=== PATIENT | male | born 1950 | race African-American/Black ===

== ENCOUNTER → 2016-10-31 | Outpatient (CLI) | payer BC, OTHER ==
[2016-10-31 14:55] LABS: HEMATOCRIT. 41.3 % (42.0-52.0); HEMOGLOBIN. 14.1 g/dL (14.0-18.0); MEAN CORPUSCULAR HEMOGLOBIN 27.2 pg (28.0-32.0); MEAN CORPUSCULAR HGB CONC 34.2 g/dL (31.0-37.0); MEAN CORPUSCULAR VOLUME 79.6 fL (80.0-94.0); MEAN PLATELET VOLUME 7.4 fl (7.4-10.4); PLATELET 241 x1000/uL (130-400); RED BLOOD CELL COUNT 5.18 mill/uL (4.7-6.1); RED CELL DISTRIBUTION WIDTH 15.1 % (11.6-14.6); WHITE BLOOD COUNT 4.3 x1000/uL (4.5-11.0)
[2016-10-31 15:01] LABS: DIFFERENTIAL COMMENT 1
[2016-10-31 15:09] LABS: ALANINE AMINOTRANSFERASE 21 IU/L (13-61); ANION GAP 12; CALCIUM 8.6 mg/dL (8.5-10.1); CARBON DIOXIDE 30 mEq/L (21-32); CHLORIDE 103 mEq/L (98-107); HDL CHOLESTEROL 32 mg/dL (40-59); INDEX HEMOLYSI 1 (1-3); INDEX ICTERIC 1 (1-4); INDEX LIPEMIC 1 (1-3); LDL CHOLESTEROL 126 mg/dL (5-100); TRIGLYCERIDE 151 mg/dL (0-150); UREA NITROGEN BLOOD 18 mg/dL (7-21); eGFR > 60 mL/min (>60)
[2016-10-31 15:29] LABS: PLATELET ESTIMATE NORMAL
== END | disposition home or self-care (01) ==
LOC: LAB 14:20
PROVIDERS: ATTEND Internal Medicine Geriatric Medicine
DX: I10 Essential (primary) hypertension (principal); E78.2 Mixed hyperlipidemia
CPT/HCPCS: 36415; 80053; 80061; 83036; 85025

== ENCOUNTER → 2016-11-12 | Outpatient (CLI) | payer BC, OTHER | END | disposition home or self-care (01) | LOC: PVL 12:30 | PROVIDERS: ATTEND Specialist | DX: M51.37 Other intervertebral disc degeneration, lumbosacral region (principal); M54.16 Radiculopathy, lumbar region | CPT/HCPCS: 72100; 93923 ==

== ENCOUNTER → 2017-04-01 | Outpatient (CLI) | payer BC, OTHER ==
[2017-04-01 15:32] LABS: T4 FREE 0.96 ng/dL (0.76-1.46)
[2017-04-01 15:48] LABS: VITAMIN B12 SERUM 941 pg/mL (211-911)
[2017-04-01 15:51] LABS: FOLIC ACID (FOLATE) SERUM > 20.00 ng/mL (>5.38)
== END | disposition home or self-care (01) ==
LOC: LAB 14:26
PROVIDERS: ATTEND Psychiatry & Neurology Neurology
DX: M79.609 Pain in unspecified limb (principal); R70.0 Elevated erythrocyte sedimentation rate
CPT/HCPCS: 36415; 82607; 82746; 83036; 84439; 84443; 84481

== ENCOUNTER → 2017-04-23 | Outpatient (CLI) | payer BC, OTHER | END | disposition home or self-care (01) | LOC: MRI 08:22 | PROVIDERS: ATTEND Psychiatry & Neurology Neurology | DX: M51.36 Other intervertebral disc degeneration, lumbar region (principal); M48.061 Spinal stenosis, lumbar region without neurogenic claudication; M51.27 Other intervertebral disc displacement, lumbosacral region; M51.26 Other intervertebral disc displacement, lumbar region; R20.0 Anesthesia of skin | CPT/HCPCS: 72148 ==

== ENCOUNTER → 2017-07-30 | Outpatient (CLI) | payer BC, OTHER ==
[2017-07-30 07:08] LABS: BASOPHILS % 0.3 % (0.0-2.0); EOSINOPHILS % 2.2 % (0.0-5.0); HEMATOCRIT. 42.1 % (42.0-52.0); HEMOGLOBIN. 14.1 g/dL (14.0-18.0); LYMPHOCYTES % 37.9 % (20.0-50.0); MEAN CORPUSCULAR HEMOGLOBIN 27.4 pg (28.0-32.0); MEAN CORPUSCULAR VOLUME 81.6 fL (80.0-94.0); MEAN PLATELET VOLUME 6.8 fl (7.4-10.4); MONOCYTES % 10.8 % (2.0-8.0); NEUTROPHILS % 48.8 % (40.0-76.0); PLATELET 261 x1000/uL (130-400); RED BLOOD CELL COUNT 5.16 mill/uL (4.7-6.1); RED CELL DISTRIBUTION WIDTH 15.3 % (11.6-14.6)
[2017-07-30 08:16] LABS: CARBON DIOXIDE 29 mEq/L (21-32); CHLORIDE 103 mEq/L (98-107); HDL CHOLESTEROL 31 mg/dL (40-59); LDL CHOLESTEROL 111 mg/dL (5-100)
== END | disposition home or self-care (01) ==
LOC: LAB 06:47
PROVIDERS: ATTEND Specialist
DX: I10 Essential (primary) hypertension (principal); R39.15 Urgency of urination
CPT/HCPCS: 36415; 80053; 80061; 84153; 85025

== ENCOUNTER → 2017-08-11 | Day surgery (SDC) | payer BC, OTHER ==
[2017-08-11 06:59] LABS: HEMATOCRIT. 44.2 % (42.0-52.0); HEMOGLOBIN. 14.7 g/dL (14.0-18.0); MEAN CORPUSCULAR HEMOGLOBIN 27.6 pg (28.0-32.0); PLATELET 222 x1000/uL (130-400); RED BLOOD CELL COUNT 5.33 mill/uL (4.7-6.1); RED CELL DISTRIBUTION WIDTH 14.9 % (11.6-14.6)
[2017-08-11 07:30] LABS: CARBON DIOXIDE 30 mEq/L (21-32); CHLORIDE 106 mEq/L (98-107); HDL CHOLESTEROL 34 mg/dL (40-59); LDL CHOLESTEROL 108 mg/dL (5-100); TOTAL IRON BINDING CAPACITY 298 ug/dL (250-450)
[2017-08-11 11:26] LABS: PLATELET ESTIMATE NORMAL
[2017-08-11 11:56] LABS: PROSTRATE SPECIFIC AG TOTAL 1.16 ng/mL (0.0-4.0)
== END | disposition home or self-care (01) ==
LOC: LAB 06:25
PROVIDERS: ATTEND Internal Medicine Geriatric Medicine
DX: Z00.00 Encounter for general adult medical examination without abnormal findings (principal); Z12.5 Encounter for screening for malignant neoplasm of prostate; I10 Essential (primary) hypertension; R73.09 Other abnormal glucose
CPT/HCPCS: 36415; 80053; 80061; 82306; 82607; 83036; 83540; 83550; 84153; 84443; 85025; 86592

== ENCOUNTER → 2017-10-24 | Outpatient (CLI) | payer BC, OTHER | END | disposition home or self-care (01) | LOC: MRI 10-22 07:24 | PROVIDERS: ATTEND Podiatrist Foot & Ankle Surgery | DX: M19.071 Primary osteoarthritis, right ankle and foot (principal); M25.474 Effusion, right foot | CPT/HCPCS: 73721 ==

== ENCOUNTER → 2017-11-12 | Outpatient (CLI) | payer BC, OTHER ==
[2017-11-12 08:58] LABS: CHLORIDE 107 mEq/L (98-107)
[2017-11-12 09:06] LABS: LDL CHOLESTEROL 117 mg/dL (5-100)
[2017-11-12 09:07] LABS: HDL CHOLESTEROL 31 mg/dL (40-59)
== END | disposition home or self-care (01) ==
LOC: LAB 07:45
PROVIDERS: ATTEND Internal Medicine Geriatric Medicine
DX: E78.5 Hyperlipidemia, unspecified (principal); R79.89 Other specified abnormal findings of blood chemistry; I10 Essential (primary) hypertension
CPT/HCPCS: 36415; 80053; 80061; 83036

== ENCOUNTER → 2018-04-23 | Outpatient (CLI) | payer BC, OTHER ==
[2018-04-23 07:31] LABS: INR 1.1; PARTIAL THROMBOPLASTIN TIME 31.6 sec (23.4-31.0); PROTHROMBIN TIME 11.2 sec (9.1-11.1)
[2018-04-23 07:48] LABS: HEMATOCRIT. 42.7 % (42.0-52.0); HEMOGLOBIN. 14.6 g/dL (14.0-18.0); MEAN CORPUSCULAR HEMOGLOBIN 27.8 pg (28.0-32.0); MEAN CORPUSCULAR VOLUME 81.4 fL (80.0-94.0); MEAN PLATELET VOLUME 7.3 fl (7.4-10.4); PLATELET 227 x1000/uL (130-400); RED BLOOD CELL COUNT 5.25 mill/uL (4.7-6.1); RED CELL DISTRIBUTION WIDTH 15.6 % (11.6-14.6)
[2018-04-23 07:51] LABS: CHLORIDE 106 mEq/L (98-107)
[2018-04-23 07:57] LABS: HDL CHOLESTEROL 28 mg/dL (40-59); LDL CHOLESTEROL 120 mg/dL (5-100)
[2018-04-23 11:06] LABS: PLATELET ESTIMATE NORMAL
== END | disposition home or self-care (01) ==
LOC: LAB 04-22 16:40
PROVIDERS: ATTEND Internal Medicine Geriatric Medicine
DX: I10 Essential (primary) hypertension (principal); E78.5 Hyperlipidemia, unspecified; R73.9 Hyperglycemia, unspecified; Z79.01 Long term (current) use of anticoagulants
CPT/HCPCS: 36415; 80061; 83036

== ENCOUNTER → 2018-04-30 | Outpatient (CLI) | payer BC, OTHER ==
[~2018-04-30] MED LIST: IOHEXOL-300 100 ML BOTTLE ONE
== END | disposition home or self-care (01) ==
LOC: CT 07:14
PROVIDERS: ATTEND Internal Medicine Geriatric Medicine
DX: R22.1 Localized swelling, mass and lump, neck (principal); R51 Headache; R05 Cough
CPT/HCPCS: 70470; 70486; 70492; 71270; Q9967

== ENCOUNTER → 2018-05-12 | Outpatient (CLI) | payer BC, OTHER ==
[2018-05-12 20:07] LABS: PROSTRATE SPECIFIC AG TOTAL 1.11 ng/mL (0.0-4.0)
[2018-05-12 20:08] LABS: CARCINO EMBRYONIC ANTIGEN 1.9 ng/ml
== END | disposition home or self-care (01) ==
LOC: LAB 16:18
PROVIDERS: ATTEND Internal Medicine Geriatric Medicine
DX: R59.0 Localized enlarged lymph nodes (principal)
CPT/HCPCS: 36415; 82378; 84153; 86301; G0103

== ENCOUNTER → 2018-05-14 | Outpatient (CLI) | payer BC, OTHER ==
[~2018-05-14] MED LIST changes: +BARIUM SULFATE 450ML ORAL SUSP ONE; +LIDOCAINE HCL 1% 20ML VIAL (Pyxis) INJ ONE; +SODIUM BICARBONATE 4% (2.4MEQ) 5ML VIAL IV ONE
== END | disposition home or self-care (01) ==
LOC: CT 07:06
PROVIDERS: ATTEND Internal Medicine Geriatric Medicine
DX: C79.89 Secondary malignant neoplasm of other specified sites (principal); C80.1 Malignant (primary) neoplasm, unspecified; I10 Essential (primary) hypertension; E78.5 Hyperlipidemia, unspecified; Z79.899 Other long term (current) drug therapy; Z79.01 Long term (current) use of anticoagulants
CPT/HCPCS: 38505; 74178; 76942; 88172; 88173; J3490; Q9967

== ENCOUNTER 2018-05-16 05:53 | Inpatient (IN) | payer BC, MEDICARE, OTHER ==
[~2018-05-16] VITALS: Ht 185.4 cm; Wt 105.2 kg
[2018-05-16 07:43] LABS: CHLORIDE 105 mEq/L (98-107)
[2018-05-16 07:51] LABS: INR 1.1; PARTIAL THROMBOPLASTIN TIME 31.8 sec (23.4-31.0)
[2018-05-16 07:57] LABS: HEMATOCRIT. 44.3 % (42.0-52.0); HEMOGLOBIN. 15.2 g/dL (14.0-18.0); MEAN CORPUSCULAR HEMOGLOBIN 27.9 pg (28.0-32.0); MEAN CORPUSCULAR VOLUME 81.5 fL (80.0-94.0); MEAN PLATELET VOLUME 7.3 fl (7.4-10.4); PLATELET 244 x1000/uL (130-400); RED BLOOD CELL COUNT 5.44 mill/uL (4.7-6.1); RED CELL DISTRIBUTION WIDTH 15.5 % (11.6-14.6)
[2018-05-16] MEDS ORDERED: SODIUM CHL 0.45% + KCL 20MEQ/L 1,000 ML IV SCH (08:00)
[2018-05-16] MEDS ORDERED: CLONIDINE 0.1MG TABLET PO PRN (08:00)
[2018-05-16] MEDS ORDERED: ACETAMINOPHEN 325MG TABLET PO PRN (08:00)
[2018-05-16] MEDS ORDERED: ONDANSETRON HCL 4MG/2ML INJ IV PRN (08:00)
[2018-05-16 08:15] LABS: PLATELET ESTIMATE NORMAL
[2018-05-16 08:48] LABS: CLARITY URINE CLEAR (CLEAR); COLOR URINE YELLOW (YELLOW); KETONES URINE NEGATIVE (NEGATIVE); LEUKOCYTE ESTERASE URINE NEGATIVE (NEGATIVE); NITRITE URINE NEGATIVE (NEGATIVE); OCCULT BLOOD URINE NEGATIVE (NEGATIVE); PROTEIN URINE NEGATIVE (NEGATIVE); SPECIFIC GRAVITY URINE 1.017 (1.005-1.030); UROBILINOGEN URINE 0.2 E.U./dL (0.2-1.0)
[2018-05-16] MEDS ORDERED: DOCUSATE SODIUM 100MG CAPSULE PO SCH (09:00)
[2018-05-16] MEDS ORDERED: IOHEXOL-300 100 ML BOTTLE ONE (09:29)
[2018-05-16] MEDS ORDERED: PIPERACILLIN/TAZ 3.375G PREMIX 50 ML IV SCH (09:51)
[2018-05-16 11:00] VITALS: BP 123/74
[2018-05-16] MEDS: DOCUSATE SODIUM 250MG CAPSULE PO SCH (11:00)
[2018-05-16] MEDS: AMLODIPINE 5MG TABLET PO SCH (11:00)
[2018-05-16] MEDS ORDERED: MORPHINE SULFATE 4 MG/ML CPJ (NOT FOR IM USE) IV PRN (11:15)
[2018-05-16] MEDS ORDERED: IPRATROPIUM/ALBUTEROL 0.5-3(2.5)MG/3ML NEB HHN SCH (12:00)
[2018-05-16] MEDS: SODIUM CHLORIDE 0.45% 1,000 ML IV SCH ×2 (15:15→20:57)
[2018-05-16] MEDS: PIPERACILLIN/TAZ 3.375G PREMIX 50 ML IV SCH ×2 (15:15→21:32)
[2018-05-16 19:59] VITALS: BP 110/60
[2018-05-16] MEDS ORDERED: ZOLPIDEM TARTRATE 5MG TABLET PO PRN (21:00)
[2018-05-16 23:49] VITALS: BP 115/61
[2018-05-17 04:00] VITALS: BP 136/76
[2018-05-17] MEDS: PIPERACILLIN/TAZ 3.375G PREMIX 50 ML IV SCH (05:28)
[2018-05-17] MEDS: SODIUM CHLORIDE 0.45% 1,000 ML IV SCH (05:28)
[2018-05-17 07:01] LABS: BASOPHILS % 0.3 % (0.0-2.0); EOSINOPHILS % 3.2 % (0.0-5.0); HEMATOCRIT. 42.2 % (42.0-52.0); HEMOGLOBIN. 14.6 g/dL (14.0-18.0); LYMPHOCYTES % 38.7 % (20.0-50.0); MEAN CORPUSCULAR HEMOGLOBIN 28.1 pg (28.0-32.0); MEAN CORPUSCULAR VOLUME 81.1 fL (80.0-94.0); MEAN PLATELET VOLUME 7.3 fl (7.4-10.4); MONOCYTES % 7.9 % (2.0-8.0); NEUTROPHILS % 49.9 % (40.0-76.0); PLATELET 238 x1000/uL (130-400); RED CELL DISTRIBUTION WIDTH 15.1 % (11.6-14.6)
[2018-05-17 07:02] LABS: CHLORIDE 104 mEq/L (98-107)
[2018-05-17 08:00] VITALS: BP 139/80
[2018-05-17 08:19] LABS: BG BASE EXCESS -1.4 mmol/L (-2.0-2.0); BG CARBOXYHEMOGLOBIN 1.1 % (0.5-1.5); BG DEOXYHEMOGLOBIN 3.5 % (0.0-5.0); BG FRACTION INSPIRED OXYGEN 21; BG HCO3 ACT 22.9 mmol/L (22.0-26.0); BG METHEMOGLOBIN 0.3 % (0.0-1.5); BG OXYGEN SATURATION 96.5 % (92.0-98.5); BG OXYHEMOGLOBIN 95.1 % (94.0-97.0); BG PCO2 37.4 mmHg (35.0-45.0); BG PH 7.405 (7.350-7.450); BG PO2 85.7 mmHg (75.0-100.0); BG SAMPLE SITE RIGHT RADIAL; BG TOTAL HEMOGLOBIN 14.9 g/dL (12.0-18.0); BG VENT MODE ROOM AIR
[2018-05-17] MEDS: AMLODIPINE 5MG TABLET PO SCH (08:45)
[2018-05-17] MEDS: DOCUSATE SODIUM 250MG CAPSULE PO SCH (08:48)
[2018-05-17 09:34] VITALS: BP 139/80
== END 2018-05-17 11:01 | disposition home or self-care (01) | DRG 147 ==
LOC: ER 05:53 → 7WST 08:21 → CANRESERV 09:35 → ENRESERV 09:35
PROVIDERS: ADMIT Internal Medicine Geriatric Medicine; ATTEND Internal Medicine Geriatric Medicine
DX: C09.9 Malignant neoplasm of tonsil, unspecified (principal); I47.2 Ventricular tachycardia; I10 Essential (primary) hypertension; E78.00 Pure hypercholesterolemia, unspecified; J98.8 Other specified respiratory disorders
CPT/HCPCS: 36415; 36600; 70470; 70486; 70491; 80048; 82375; 82805; 96365; 99285; J2543; J7620; Q9967

== ENCOUNTER → 2018-06-02 | Outpatient (CLI) | payer BC, MEDICARE, OTHER | END | disposition home or self-care (01) | LOC: LAB 08:28 | PROVIDERS: ATTEND Internal Medicine Hematology & Oncology | DX: C09.0 Malignant neoplasm of tonsillar fossa (principal) | CPT/HCPCS: 36415; 82378 ==

== ENCOUNTER 2018-08-11 12:18 | Inpatient (IN) | payer BC, MEDICARE, OTHER ==
[~2018-08-11] VITALS: Ht 189.2 cm; Wt 86.2 kg
[2018-08-11] MEDS ORDERED: MAGNESIUM/ALUMINUM HYDROXIDE/SIMETHICONE 30ML UDC PO PRN (13:30)
[2018-08-11] MEDS ORDERED: HYDROMORPHONE HCL/PF 2MG/ML CPJ IV PRN (13:30)
[2018-08-11] MEDS ORDERED: LORAZEPAM 2MG/ML CPJ IV PRN (13:30)
[2018-08-11] MEDS ORDERED: ACETAMINOPHEN 650MG SUPP PR PRN (13:30)
[2018-08-11] MEDS ORDERED: ONDANSETRON HCL 4MG/2ML INJ IV PRN (13:30)
[2018-08-11] MEDS ORDERED: PANTOPRAZOLE SODIUM 40 MG/VIAL IV ONE (14:00)
[2018-08-11] MEDS ORDERED: SODIUM CHLORIDE 0.9% 1,000 ML IV ONE (14:50)
[2018-08-11 15:31] LABS: BASOPHILS % 0.7 % (0.0-2.0); HEMATOCRIT. 45.7 % (42.0-52.0); HEMOGLOBIN. 15.5 g/dL (14.0-18.0); LYMPHOCYTES % 7.3 % (20.0-50.0); MEAN CORPUSCULAR HEMOGLOBIN 27.9 pg (28.0-32.0); MEAN CORPUSCULAR VOLUME 81.9 fL (80.0-94.0); MEAN PLATELET VOLUME 7.6 fl (7.4-10.4); MONOCYTES % 11.8 % (2.0-8.0); NEUTROPHILS % 78.2 % (40.0-76.0); PLATELET 238 x1000/uL (130-400); RED BLOOD CELL COUNT 5.57 mill/uL (4.7-6.1); RED CELL DISTRIBUTION WIDTH 14.9 % (11.6-14.6)
[2018-08-11 15:37] LABS: CHLORIDE 104 mEq/L (98-107)
[2018-08-11 15:46] LABS: INR 1.2; PARTIAL THROMBOPLASTIN TIME 29.9 sec (23.4-31.0)
[2018-08-11 15:49] LABS: CREATINE KINASE MB FRACTION 1.5 ng/mL (0.5-3.6)
[2018-08-11] MEDS ORDERED: MVI, ADULT NO.1 10 ML, FOLIC ACID 1 MG in SODIUM CHLORIDE 0.9% 1,000 ML IV SCH ×3 (16:00)
[2018-08-11] MEDS ORDERED: MVI, ADULT NO.1 10 ML, FOLIC ACID 1 MG in SODIUM CHLORIDE 0.9% 1,000 ML IV NR ×3 (16:00)
[2018-08-11] MEDS ORDERED: IOHEXOL-300 100 ML BOTTLE ONE (18:33)
[2018-08-11 20:23] LABS: CLARITY URINE CLEAR (CLEAR); COLOR URINE YELLOW (YELLOW); KETONES URINE 2+ (NEGATIVE); LEUKOCYTE ESTERASE URINE NEGATIVE (NEGATIVE); NITRITE URINE NEGATIVE (NEGATIVE); OCCULT BLOOD URINE NEGATIVE (NEGATIVE); PROTEIN URINE NEGATIVE (NEGATIVE); SPECIFIC GRAVITY URINE 1.057 (1.005-1.030); UROBILINOGEN URINE 0.2 E.U./dL (0.2-1.0)
[2018-08-11] MEDS ORDERED: PANTOPRAZOLE SODIUM 40 MG/VIAL IV SCH (21:00)
[2018-08-12] VITALS: BP 116/82
[2018-08-12] MEDS ORDERED: AMLO5TAB88 PO (00:47)
[2018-08-12] MEDS: IPRATROPIUM/ALBUTEROL 0.5-3(2.5)MG/3ML NEB HHN SCH ×5 (00:50→20:03)
[2018-08-12 00:59] VITALS: BP 116/82
[2018-08-12] MEDS: DEXT 5%/0.45% NACL KCL 20MEQ/L 1,000 ML IV SCH ×2 (03:06→15:52)
[2018-08-12 04:00] VITALS: BP 128/80
[2018-08-12 05:46] LABS: BASOPHILS % 0.9 % (0.0-2.0); EOSINOPHILS % 4.2 % (0.0-5.0); HEMATOCRIT. 41.7 % (42.0-52.0); HEMOGLOBIN. 14.1 g/dL (14.0-18.0); LYMPHOCYTES % 10.5 % (20.0-50.0); MEAN CORPUSCULAR HEMOGLOBIN 27.8 pg (28.0-32.0); MEAN CORPUSCULAR VOLUME 82.2 fL (80.0-94.0); MEAN PLATELET VOLUME 7.7 fl (7.4-10.4); NEUTROPHILS % 70.4 % (40.0-76.0); PLATELET 219 x1000/uL (130-400); RED BLOOD CELL COUNT 5.08 mill/uL (4.7-6.1)
[2018-08-12 06:18] LABS: INR 1.1; PARTIAL THROMBOPLASTIN TIME 29.9 sec (23.4-31.0); PROTHROMBIN TIME 11.5 sec (9.1-11.1)
[2018-08-12 06:39] LABS: CHLORIDE 109 mEq/L (98-107)
[2018-08-12 06:51] LABS: LDL CHOLESTEROL 87 mg/dL (5-100)
[2018-08-12 06:53] LABS: HDL CHOLESTEROL 27 mg/dL (40-59)
[2018-08-12 08:00] VITALS: BP 123/79
[2018-08-12] MEDS ORDERED: CEFAZOLIN 1000MG PREMIX 50 ML IV NR (08:00)
[2018-08-12] MEDS ORDERED: NON FORMULARY PATIENT HOME MED XX SCH (08:30)
[2018-08-12] MEDS ORDERED: PANTOPRAZOLE SODIUM 40 MG/VIAL IV SCH (09:00)
[2018-08-12] MEDS ORDERED: SIMETHICONE 40 MG/0.6 ML 30ML ONE (11:39)
[2018-08-12] MEDS ORDERED: MIDAZOLAM HCL 5 MG/5 ML VIAL ONE (11:39)
[2018-08-12] MEDS ORDERED: FENTANYL CITRATE/PF 50MCG/ML 2ML VIAL ONE (11:40)
[2018-08-12] MEDS ORDERED: MIDAZOLAM HCL 5 MG/5 ML VIAL IV ONE (11:46)
[2018-08-12] MEDS ORDERED: FENTANYL CITRATE/PF 50MCG/ML 2ML VIAL IV ONE (11:47)
[2018-08-12] MEDS ORDERED: PANTOT AC/MIN OIL/PET HY-PHL OINT (AQUAPHOR) TOP SCH (12:00)
[2018-08-12] MEDS: AMLODIPINE 5MG TABLET PO SCH (13:30)
[2018-08-12 15:55] VITALS: BP 103/79
[2018-08-12] MEDS ORDERED: SODIUM CHLORIDE 0.9% 10ML VIAL ONE (16:19)
[2018-08-12 20:00] VITALS: BP 131/78
[2018-08-12] MEDS ORDERED: FAMOTIDINE 20MG TABLET PO SCH (21:00)
[2018-08-13 04:00] VITALS: BP 121/73
[2018-08-13] MEDS: IPRATROPIUM/ALBUTEROL 0.5-3(2.5)MG/3ML NEB HHN SCH ×2 (04:00)
[2018-08-13 06:51] LABS: BASOPHILS % 0.7 % (0.0-2.0); EOSINOPHILS % 4.4 % (0.0-5.0); HEMATOCRIT. 37.9 % (42.0-52.0); HEMOGLOBIN. 12.9 g/dL (14.0-18.0); LYMPHOCYTES % 9.6 % (20.0-50.0); MEAN CORPUSCULAR HEMOGLOBIN 27.7 pg (28.0-32.0); MEAN CORPUSCULAR VOLUME 81.6 fL (80.0-94.0); MEAN PLATELET VOLUME 7.8 fl (7.4-10.4); MONOCYTES % 11.8 % (2.0-8.0); NEUTROPHILS % 73.5 % (40.0-76.0); PLATELET 179 x1000/uL (130-400); RED BLOOD CELL COUNT 4.65 mill/uL (4.7-6.1); RED CELL DISTRIBUTION WIDTH 14.7 % (11.6-14.6)
[2018-08-13 07:41] LABS: CHLORIDE 105 mEq/L (98-107)
[2018-08-13 08:00] VITALS: BP 118/75
[2018-08-13] MEDS: AMLODIPINE 5MG TABLET PO SCH (08:47)
[2018-08-13] MEDS: VISCOUS LIDOCAINE 2% 15 ML UDC MM PRN ×2 (08:47→08:49)
[2018-08-13 12:25] VITALS: BP 110/65
[2018-08-13] MEDS ORDERED: ENOXAPARIN 40MG/0.4ML SYR SUBCUT SCH (21:00)
[2018-10-05] MEDS ORDERED: LEVO500T89 PO (08:08)
[2018-10-05] MEDS ORDERED: ESOM40CA PO (08:08)
[2018-10-05] MEDS ORDERED: GLYC1TAB11 PO (08:08)
[2018-10-05] MEDS ORDERED: AMLO5TAB88 PO (08:08)
== END 2018-08-13 13:48 | disposition home health service (06) | DRG 146 ==
LOC: ER 12:18 → 6EST 16:54 → EDBEDREQ 16:59 → EDBEDREQSVC 16:59 → EDBEDREQ 17:00 → ENRESERV 20:46
PROVIDERS: ADMIT Internal Medicine Geriatric Medicine; ATTEND Internal Medicine Geriatric Medicine
PROC: 0DB68ZX Excision of Stomach, Via Natural or Artificial Opening Endoscopic, Diagnostic (ICD-10-PCS; principal; 2018-08-12)
DX: C09.9 Malignant neoplasm of tonsil, unspecified (principal); E43 Unspecified severe protein-calorie malnutrition; R17 Unspecified jaundice; E86.0 Dehydration; E78.5 Hyperlipidemia, unspecified; R79.89 Other specified abnormal findings of blood chemistry; K26.9 Duodenal ulcer, unspecified as acute or chronic, without hemorrhage or perforation; I10 Essential (primary) hypertension; Z96.659 Presence of unspecified artificial knee joint; R00.0 Tachycardia, unspecified; K20.9 Esophagitis, unspecified; K29.60 Other gastritis without bleeding; K25.9 Gastric ulcer, unspecified as acute or chronic, without hemorrhage or perforation; Y84.2 Radiological procedure and radiotherapy as the cause of abnormal reaction of the patient, or of later complication, without mention of misadventure at the time of the procedure; J02.9 Acute pharyngitis, unspecified; E78.00 Pure hypercholesterolemia, unspecified; N40.0 Benign prostatic hyperplasia without lower urinary tract symptoms; Z92.3 Personal history of irradiation; Z88.8 Allergy status to other drugs, medicaments and biological substances; Z68.24 Body mass index [BMI] 24.0-24.9, adult
CPT/HCPCS: 36415; 70470; 70490; 71045; 71250; 80048; 80061; 82378; 82553; 83036; 83880; 84134; 84443; 84484; 86677; 88305; 88312; 88313; 92610; 93005; 93306; 93970; 96365; 96375; 97161; 99285; C9113; J0690; J2250; J3010; J3490; J7030; J7620; Q9967

== ENCOUNTER → 2018-09-22 | Outpatient (CLI) | payer BC ==
[~2018-09-22] MED LIST changes: +AMLO5TAB88 PO; -BARIUM SULFATE 450ML ORAL SUSP ONE; +ESOM40CA PO; +GLYC1TAB11 PO; -IOHEXOL-300 100 ML BOTTLE ONE; +LEVO500T89 PO; -LIDOCAINE HCL 1% 20ML VIAL (Pyxis) INJ ONE; -SODIUM BICARBONATE 4% (2.4MEQ) 5ML VIAL IV ONE
[2018-09-22 12:52] LABS: CHLORIDE 102 mEq/L (98-107)
== END | disposition home or self-care (01) ==
LOC: LAB 12:24
PROVIDERS: ATTEND Internal Medicine Geriatric Medicine
DX: I10 Essential (primary) hypertension (principal)
CPT/HCPCS: 36415; 80048

== ENCOUNTER → 2018-09-23 | Outpatient (CLI) | payer BC ==
[~2018-09-23] MED LIST changes: +IOHEXOL-300 100 ML BOTTLE ONE
== END | disposition home or self-care (01) ==
LOC: CT 08:30
PROVIDERS: ATTEND Otolaryngology Otolaryngology/Facial Plastic Surgery
DX: R22.1 Localized swelling, mass and lump, neck (principal)
CPT/HCPCS: 70492; Q9967

== ENCOUNTER → 2018-09-25 | Outpatient (CLI) | payer BC ==
[~2018-09-25] MED LIST changes: +BARIUM SULFATE 176 GM SUSP.RECON ONE; +EZ-HD SUSPENSION(BARIUM SULFATE 340GM) PO ONE; -IOHEXOL-300 100 ML BOTTLE ONE
[2018-09-25 14:20] LABS: BASOPHILS % 0.6 % (0.0-2.0); HEMATOCRIT. 37.7 % (42.0-52.0); HEMOGLOBIN. 12.7 g/dL (14.0-18.0); MEAN CORPUSCULAR HEMOGLOBIN 27.9 pg (28.0-32.0); MEAN CORPUSCULAR VOLUME 82.8 fL (80.0-94.0); MEAN PLATELET VOLUME 6.9 fl (7.4-10.4); MONOCYTES % 11.6 % (2.0-8.0); NEUTROPHILS % 69.8 % (40.0-76.0); PLATELET 199 x1000/uL (130-400); RED BLOOD CELL COUNT 4.55 mill/uL (4.7-6.1); RED CELL DISTRIBUTION WIDTH 16.3 % (11.6-14.6)
[2018-09-25 14:27] LABS: CHLORIDE 102 mEq/L (98-107)
[2018-09-25 14:40] LABS: INR 1.1; PARTIAL THROMBOPLASTIN TIME 41.5 sec (23.4-31.0); PROTHROMBIN TIME 10.8 sec (9.1-11.1)
== END | disposition home or self-care (01) ==
LOC: CARD 12:12
PROVIDERS: ATTEND Internal Medicine Geriatric Medicine
DX: Z01.812 Encounter for preprocedural laboratory examination (principal); I31.3 Pericardial effusion (noninflammatory); I11.9 Hypertensive heart disease without heart failure; R13.10 Dysphagia, unspecified
CPT/HCPCS: 36415; 71046; 74220; 93306

== ENCOUNTER → 2018-12-21 | Outpatient (CLI) | payer BC, MEDICARE ==
[~2018-12-21] MED LIST changes: -BARIUM SULFATE 176 GM SUSP.RECON ONE; -ESOM40CA PO; -EZ-HD SUSPENSION(BARIUM SULFATE 340GM) PO ONE; -GLYC1TAB11 PO; -LEVO500T89 PO
[2018-12-21 12:30] LABS: HEMATOCRIT. 39.3 % (42.0-52.0); HEMOGLOBIN. 13.1 g/dL (14.0-18.0); MEAN CORPUSCULAR HEMOGLOBIN 26.9 pg (28.0-32.0); MEAN CORPUSCULAR VOLUME 80.7 fL (80.0-94.0); MEAN PLATELET VOLUME 7.1 fl (7.4-10.4); PLATELET 216 x1000/uL (130-400); RED BLOOD CELL COUNT 4.88 mill/uL (4.7-6.1); RED CELL DISTRIBUTION WIDTH 17.3 % (11.6-14.6)
[2018-12-21 12:36] LABS: CHLORIDE 103 mEq/L (98-107)
[2018-12-21 13:25] LABS: PLATELET ESTIMATE NORMAL
== END | disposition home or self-care (01) ==
LOC: LAB 12:08
PROVIDERS: ATTEND Internal Medicine Hematology & Oncology
DX: C09.0 Malignant neoplasm of tonsillar fossa (principal)
CPT/HCPCS: 36415; 82378

== ENCOUNTER → 2019-02-17 | Outpatient (CLI) | payer BC | END | disposition home or self-care (01) | LOC: MRI 07:08 | PROVIDERS: ATTEND Internal Medicine Geriatric Medicine | DX: M75.122 Complete rotator cuff tear or rupture of left shoulder, not specified as traumatic (principal); M47.22 Other spondylosis with radiculopathy, cervical region; M19.012 Primary osteoarthritis, left shoulder; M50.11 Cervical disc disorder with radiculopathy, high cervical region; M48.02 Spinal stenosis, cervical region | CPT/HCPCS: 72141; 73221 ==

== ENCOUNTER → 2019-03-01 | Outpatient (CLI) | payer BC | END | disposition home or self-care (01) | LOC: RAD 07:25 | PROVIDERS: ATTEND Internal Medicine Geriatric Medicine | DX: M25.512 Pain in left shoulder (principal) | CPT/HCPCS: 73030 ==

== ENCOUNTER → 2019-03-17 | Outpatient (CLI) | payer BC ==
[2019-03-17 08:28] LABS: BASOPHILS % 0.6 % (0.0-2.0); HEMATOCRIT. 41.5 % (42.0-52.0); HEMOGLOBIN. 14.4 g/dL (14.0-18.0); LYMPHOCYTES % 32.7 % (20.0-50.0); MEAN CORPUSCULAR HEMOGLOBIN 28.3 pg (28.0-32.0); MEAN CORPUSCULAR VOLUME 81.8 fL (80.0-94.0); MEAN PLATELET VOLUME 6.9 fl (7.4-10.4); MONOCYTES % 10.6 % (2.0-8.0); NEUTROPHILS % 50.1 % (40.0-76.0); PLATELET 190 x1000/uL (130-400); RED BLOOD CELL COUNT 5.08 mill/uL (4.7-6.1); RED CELL DISTRIBUTION WIDTH 17.4 % (11.6-14.6)
[2019-03-17 09:55] LABS: CHLORIDE 104 mEq/L (98-107)
[2019-03-17 10:07] LABS: T4 FREE 0.88 ng/dL (0.76-1.46)
== END | disposition home or self-care (01) ==
LOC: LAB 07:54
PROVIDERS: ATTEND Internal Medicine Hematology & Oncology
DX: C09.0 Malignant neoplasm of tonsillar fossa (principal)
CPT/HCPCS: 36415; 82378; 84439; 84443

== ENCOUNTER → 2019-06-15 | Outpatient (CLI) | payer BC ==
[2019-06-15 17:11] LABS: HEMATOCRIT. 40.9 % (42.0-52.0); HEMOGLOBIN. 13.8 g/dL (14.0-18.0); MEAN CORPUSCULAR VOLUME 85.8 fL (80.0-94.0); MEAN PLATELET VOLUME 7.1 fl (7.4-10.4); PLATELET 204 x1000/uL (130-400); RED BLOOD CELL COUNT 4.77 mill/uL (4.7-6.1); RED CELL DISTRIBUTION WIDTH 15.4 % (11.6-14.6)
[2019-06-15 17:12] LABS: CHLORIDE 104 mEq/L (98-107)
[2019-06-15 17:38] LABS: PLATELET ESTIMATE NORMAL
== END | disposition home or self-care (01) ==
LOC: LAB 16:29
PROVIDERS: ATTEND Internal Medicine Hematology & Oncology
DX: C09.0 Malignant neoplasm of tonsillar fossa (principal)
CPT/HCPCS: 36415; 82378

== ENCOUNTER → 2019-07-22 | Outpatient (CLI) | payer BC ==
[2019-07-22 14:23] LABS: HEMATOCRIT. 40.1 % (42.0-52.0); HEMOGLOBIN. 13.9 g/dL (14.0-18.0); MEAN CORPUSCULAR HEMOGLOBIN 29.3 pg (28.0-32.0); MEAN CORPUSCULAR VOLUME 84.6 fL (80.0-94.0); MEAN PLATELET VOLUME 6.7 fl (7.4-10.4); PLATELET 181 x1000/uL (130-400); RED BLOOD CELL COUNT 4.74 mill/uL (4.7-6.1); RED CELL DISTRIBUTION WIDTH 15.1 % (11.6-14.6)
[2019-07-22 14:29] LABS: CHLORIDE 105 mEq/L (98-107)
[2019-07-22 14:36] LABS: LDL CHOLESTEROL 111 mg/dL (5-100)
[2019-07-22 14:37] LABS: HDL CHOLESTEROL 46 mg/dL (40-59)
[2019-07-22 14:38] LABS: TOTAL IRON BINDING CAPACITY 289 ug/dL (250-450)
[2019-07-22 14:41] LABS: PLATELET ESTIMATE NORMAL
[2019-07-22 15:16] LABS: CARCINO EMBRYONIC ANTIGEN 2.4 ng/ml; PROSTRATE SPECIFIC AG TOTAL 1.13 ng/mL (0.0-4.0)
== END | disposition home or self-care (01) ==
LOC: LAB 13:51
PROVIDERS: ATTEND Internal Medicine Geriatric Medicine
DX: Z00.00 Encounter for general adult medical examination without abnormal findings (principal); R64 Cachexia; E78.5 Hyperlipidemia, unspecified; I10 Essential (primary) hypertension
CPT/HCPCS: 36415; 80053; 80061; 82306; 82378; 82607; 83036; 83540; 83550; 84153; 84443; 85025; 86592; G0103

== ENCOUNTER → 2020-01-18 | Outpatient (CLI) | payer MEDICARE ==
[~2020-01-18] MED LIST changes: +DOCU250C69 PO; +PANT40TA4 MT
[2020-01-18 10:17] LABS: HEMATOCRIT. 41.8 % (42.0-52.0); HEMOGLOBIN. 14.2 g/dL (14.0-18.0); MEAN CORPUSCULAR HEMOGLOBIN 29.1 pg (28.0-32.0); MEAN CORPUSCULAR VOLUME 85.5 fL (80.0-94.0); MEAN PLATELET VOLUME 6.6 fl (7.4-10.4); PLATELET 153 x1000/uL (130-400); RED BLOOD CELL COUNT 4.89 mill/uL (4.7-6.1)
[2020-01-18 10:24] LABS: CHLORIDE 103 mEq/L (98-107)
[2020-01-18 10:35] LABS: T4 FREE 0.94 ng/dL (0.76-1.46)
[2020-01-18 20:33] LABS: ATYPICAL LYMPHOCYTES 2; PLATELET ESTIMATE NORMAL
== END | disposition home or self-care (01) ==
LOC: LAB 09:45
PROVIDERS: ATTEND Internal Medicine Hematology & Oncology
DX: C09.0 Malignant neoplasm of tonsillar fossa (principal); Z79.899 Other long term (current) drug therapy
CPT/HCPCS: 36415; 80053; 82378; 84439; 84443; 85025

== ENCOUNTER 2020-03-15 07:07 | Inpatient (IN) | payer MEDICARE ==
[~2020-03-15] VITALS: Ht 190.5 cm; Wt 80.7 kg
[~2020-03-15 07:07] MED LIST changes: -DOCU250C69 PO; -PANT40TA4 MT
[2020-03-15] MEDS ORDERED: MORPHINE SULFATE 4 MG/ML CPJ (NOT FOR IM USE) IV STA (07:25)
[2020-03-15] MEDS ORDERED: ONDANSETRON HCL 4MG/2ML INJ IV STA (07:25)
[2020-03-15 08:13] LABS: BASOPHILS % 0.1 % (0.0-2.0); HEMATOCRIT. 52.8 % (42.0-52.0); HEMOGLOBIN. 18.1 g/dL (14.0-18.0); LYMPHOCYTES % 21.8 % (20.0-50.0); MEAN CORPUSCULAR VOLUME 84.4 fL (80.0-94.0); MEAN PLATELET VOLUME 7.4 fl (7.4-10.4); MONOCYTES % 7.1 % (2.0-8.0); PLATELET 278 x1000/uL (130-400); RED BLOOD CELL COUNT 6.25 mill/uL (4.7-6.1); RED CELL DISTRIBUTION WIDTH 15.2 % (11.6-14.6)
[2020-03-15 08:16] LABS: CHLORIDE 93 mEq/L (98-107)
[2020-03-15 08:20] LABS: ETHANOL BLOOD < 10 mg/dL
[2020-03-15] MEDS ORDERED: IOHEXOL-300 100 ML BOTTLE ONE (09:36)
[2020-03-15] MEDS ORDERED: SODIUM CHLORIDE 0.9% 1,000 ML IV ONE (10:45)
[2020-03-15] MEDS ORDERED: LIDOCAINE HCL 4% CREAM 76GM TUBE TP STA (11:47)
[2020-03-15 15:40] VITALS: BP 141/85
[2020-03-15 16:28] VITALS: BP 129/85
[2020-03-15] MEDS ORDERED: ENALAPRIL 2.5MG/2ML VIAL 2ML IV PRN (18:30)
[2020-03-15] MEDS ORDERED: ACETAMINOPHEN 325MG SUPP PR PRN (18:30)
[2020-03-15] MEDS ORDERED: ENALAPRIL 1.25 MG in DEXTROSE 5% WATER 50 ML IV PRN (18:45)
[2020-03-15 19:08] LABS: CLARITY URINE CLOUDY (CLEAR); COLOR URINE YELLOW (YELLOW); KETONES URINE 1+ (NEGATIVE); LEUKOCYTE ESTERASE URINE NEGATIVE (NEGATIVE); NITRITE URINE NEGATIVE (NEGATIVE); OCCULT BLOOD URINE NEGATIVE (NEGATIVE); PROTEIN URINE 1+ (NEGATIVE); SPECIFIC GRAVITY URINE 1.056 (1.005-1.030); UROBILINOGEN URINE 0.2 E.U./dL (0.2-1.0)
[2020-03-15 19:23] LABS: *BENZODIAZEPINES SCREEN URINE NEGATIVE (NEGATIVE); *COCAINE SCREEN URINE NEGATIVE (NEGATIVE)
[2020-03-15 19:24] LABS: *AMPHETAMINES SCREEN URINE NEGATIVE (NEGATIVE); CANNABINOID URINE SCREEN NEGATIVE (NEGATIVE); METHADONE URINE SCREEN NEGATIVE (NEGATIVE); OPIATES URINE SCREEN PRESUMTIVE POSITIVE (NEGATIVE); PHENCYCLIDINE URINE SCREEN NEGATIVE (NEGATIVE)
[2020-03-15 19:26] LABS: *BARBITURATES SCREEN URINE NEGATIVE (NEGATIVE)
[2020-03-15 20:00] VITALS: BP 148/83
[2020-03-15] MEDS: DEXT 5%/0.45% NACL KCL 20MEQ/L 1,000 ML IV SCH (21:11)
[2020-03-15] MEDS: ENOXAPARIN 40MG/0.4ML SYR SUBCUT SCH (21:26)
[2020-03-16] VITALS: BP 139/85
[2020-03-16 04:00] VITALS: BP 141/83
[2020-03-16 06:27] LABS: BASOPHILS % 0.1 % (0.0-2.0); EOSINOPHILS % 0.1 % (0.0-5.0); HEMATOCRIT. 48.1 % (42.0-52.0); HEMOGLOBIN. 15.9 g/dL (14.0-18.0); LYMPHOCYTES % 12.3 % (20.0-50.0); MEAN CORPUSCULAR HEMOGLOBIN 28.4 pg (28.0-32.0); MEAN CORPUSCULAR VOLUME 86.1 fL (80.0-94.0); MEAN PLATELET VOLUME 7.7 fl (7.4-10.4); MONOCYTES % 6.8 % (2.0-8.0); NEUTROPHILS % 80.7 % (40.0-76.0); PLATELET 216 x1000/uL (130-400); RED BLOOD CELL COUNT 5.58 mill/uL (4.7-6.1); RED CELL DISTRIBUTION WIDTH 15.3 % (11.6-14.6)
[2020-03-16 06:35] LABS: CHLORIDE 100 mEq/L (98-107)
[2020-03-16] MEDS: DEXT 5%/0.45% NACL KCL 20MEQ/L 1,000 ML IV SCH ×2 (07:19→21:07)
[2020-03-16 08:00] VITALS: BP 131/81
[2020-03-16] MEDS ORDERED: IPRATROPIUM/ALBUTEROL 0.5-3(2.5)MG/3ML NEB HHN PRN (08:45)
[2020-03-16] MEDS: ENOXAPARIN 40MG/0.4ML SYR SUBCUT SCH (10:41)
[2020-03-16] MEDS: PANTOPRAZOLE SODIUM 40 MG/VIAL IV SCH (10:41)
[2020-03-16] MEDS ORDERED: BUPIVACAINE HCL 0.5% (5MG/ML) 50ML ONE (10:59)
[2020-03-16] MEDS ORDERED: SKIN ADHESIVE 0.7 GM EA TOP ONE (10:59)
[2020-03-16 12:00] VITALS: BP 137/86
[2020-03-16] MEDS: PIPERACILLIN/TAZOBACTAM 3.375 G in DEXT 5% WATER 100 ML IV SCH ×2 (12:39→17:14)
[2020-03-16] MEDS ORDERED: DIATR MEGLU/DIATRIZOATE SOLN 120ML ONE (12:54)
[2020-03-16 16:00] VITALS: BP 131/89
[2020-03-16] MEDS: ONDANSETRON HCL 4MG/2ML INJ IV PRN (17:18)
[2020-03-16 20:00] VITALS: BP_SYST 112; BP_SYST 132; BP_DIAS 72; BP_DIAS 89
[2020-03-16] MEDS: MORPHINE SULFATE 2 MG/ML CPJ (NOT FOR IM USE) IV PRN (20:39)
[2020-03-17] VITALS: BP 118/88
[2020-03-17] MEDS: PIPERACILLIN/TAZOBACTAM 3.375 G in DEXT 5% WATER 100 ML IV SCH ×3 (00:21→13:03)
[2020-03-17 04:00] VITALS: BP 111/83
[2020-03-17] MEDS: MORPHINE SULFATE 2 MG/ML CPJ (NOT FOR IM USE) IV PRN (05:12)
[2020-03-17] MEDS: DEXT 5%/0.45% NACL KCL 20MEQ/L 1,000 ML IV SCH ×4 (05:12→23:08)
[2020-03-17 06:40] LABS: BASOPHILS % 0.1 % (0.0-2.0); EOSINOPHILS % 0.4 % (0.0-5.0); HEMATOCRIT. 51.7 % (42.0-52.0); HEMOGLOBIN. 17.7 g/dL (14.0-18.0); LYMPHOCYTES % 13.2 % (20.0-50.0); MEAN CORPUSCULAR VOLUME 84.6 fL (80.0-94.0); MEAN PLATELET VOLUME 7.5 fl (7.4-10.4); MONOCYTES % 9.3 % (2.0-8.0); PLATELET 240 x1000/uL (130-400); RED BLOOD CELL COUNT 6.11 mill/uL (4.7-6.1); RED CELL DISTRIBUTION WIDTH 15.2 % (11.6-14.6)
[2020-03-17 06:48] LABS: PHOSPHORUS 3.5 mg/dL (2.5-4.9)
[2020-03-17] MEDS: ENOXAPARIN 40MG/0.4ML SYR SUBCUT SCH (08:47)
[2020-03-17] MEDS: PANTOPRAZOLE SODIUM 40 MG/VIAL IV SCH (08:47)
[2020-03-17 12:00] VITALS: BP 128/81
[2020-03-17] MEDS: AMLODIPINE 2.5MG TABLET PO SCH (13:08)
[2020-03-17] MEDS ORDERED: BACITRACIN 50,000 UNITS/VIAL ONE (15:06)
[2020-03-17] MEDS ORDERED: LIDOCAINE HCL 1% 20ML VIAL (Pyxis) INJ ONE (15:06)
[2020-03-17] MEDS ORDERED: BUPIVACAINE HCL/PF 0.5% (5MG/ML) 10ML ONE (15:06)
[2020-03-17 16:00] VITALS: BP 132/87
[2020-03-17 16:17] LABS: CREATINE KINASE 103 IU/L (39-308)
[2020-03-17] MEDS ORDERED: PIPERACILLIN/TAZOBACTAM 2.25 G in DEXTROSE 5% WATER 50 ML IV SCH (18:00)
[2020-03-17] MEDS: HYDROMORPHONE HCL/PF 2MG/ML CPJ IV PRN (23:08)
[2020-03-18] VITALS: BP 132/69
[2020-03-18 00:25] LABS: BASOPHILS % 0.1 % (0.0-2.0); EOSINOPHILS % 0.5 % (0.0-5.0); HEMATOCRIT. 44.2 % (42.0-52.0); HEMOGLOBIN. 14.6 g/dL (14.0-18.0); LYMPHOCYTES % 10.7 % (20.0-50.0); MEAN CORPUSCULAR HEMOGLOBIN 28.4 pg (28.0-32.0); MEAN CORPUSCULAR VOLUME 86.3 fL (80.0-94.0); MEAN PLATELET VOLUME 7.8 fl (7.4-10.4); MONOCYTES % 7.6 % (2.0-8.0); NEUTROPHILS % 81.1 % (40.0-76.0); PLATELET 187 x1000/uL (130-400); RED BLOOD CELL COUNT 5.12 mill/uL (4.7-6.1); RED CELL DISTRIBUTION WIDTH 15.1 % (11.6-14.6)
[2020-03-18 04:00] VITALS: BP 146/80
[2020-03-18] MEDS: HYDROMORPHONE HCL/PF 2MG/ML CPJ IV PRN (04:29)
[2020-03-18] MEDS: DEXT 5%/0.45% NACL KCL 20MEQ/L 1,000 ML IV SCH ×4 (05:08→18:43)
[2020-03-18] MEDS: METOCLOPRAMIDE HCL 10MG/2ML VIAL IV SCH ×5 (05:12→23:52)
[2020-03-18 06:51] LABS: BASOPHILS % 0.2 % (0.0-2.0); EOSINOPHILS % 0.6 % (0.0-5.0); HEMATOCRIT. 46.4 % (42.0-52.0); HEMOGLOBIN. 15.5 g/dL (14.0-18.0); LYMPHOCYTES % 11.3 % (20.0-50.0); MEAN CORPUSCULAR HEMOGLOBIN 28.8 pg (28.0-32.0); MEAN CORPUSCULAR VOLUME 86.1 fL (80.0-94.0); MEAN PLATELET VOLUME 7.8 fl (7.4-10.4); MONOCYTES % 7.7 % (2.0-8.0); NEUTROPHILS % 80.2 % (40.0-76.0); PLATELET 173 x1000/uL (130-400); RED BLOOD CELL COUNT 5.39 mill/uL (4.7-6.1); RED CELL DISTRIBUTION WIDTH 14.9 % (11.6-14.6)
[2020-03-18 07:11] LABS: PHOSPHORUS 3.9 mg/dL (2.5-4.9)
[2020-03-18] MEDS: AMLODIPINE 2.5MG TABLET PO SCH ×2 (09:00→09:59)
[2020-03-18] MEDS: PANTOPRAZOLE SODIUM 40 MG/VIAL IV SCH (09:57)
[2020-03-18] MEDS: ENOXAPARIN 30MG/0.3ML SYR SUBCUT SCH (09:58)
[2020-03-18] MEDS: BISACODYL 10MG SUPP PR SCH (09:59)
[2020-03-18] MEDS ORDERED: TAMSULOSIN HCL 0.4MG SR CAPSULE PO SCH (10:15)
[2020-03-18] MEDS: MORPHINE SULFATE 2 MG/ML CPJ (NOT FOR IM USE) IV PRN ×2 (11:47→23:55)
[2020-03-18 16:00] VITALS: BP 136/80
[2020-03-18 20:00] VITALS: BP 132/78
[2020-03-19] VITALS: BP 145/77
[2020-03-19] MEDS: DEXT 5%/0.45% NACL KCL 20MEQ/L 1,000 ML IV SCH ×3 (00:03→18:24)
[2020-03-19 04:00] VITALS: BP 150/83
[2020-03-19] MEDS: METOCLOPRAMIDE HCL 10MG/2ML VIAL IV SCH ×4 (05:15→23:49)
[2020-03-19 05:58] LABS: BASOPHILS % 0.3 % (0.0-2.0); EOSINOPHILS % 4.5 % (0.0-5.0); HEMATOCRIT. 43.5 % (42.0-52.0); HEMOGLOBIN. 14.9 g/dL (14.0-18.0); LYMPHOCYTES % 14.9 % (20.0-50.0); MEAN CORPUSCULAR HEMOGLOBIN 29.2 pg (28.0-32.0); MEAN CORPUSCULAR VOLUME 85.4 fL (80.0-94.0); MEAN PLATELET VOLUME 7.7 fl (7.4-10.4); MONOCYTES % 10.6 % (2.0-8.0); NEUTROPHILS % 69.7 % (40.0-76.0); PLATELET 162 x1000/uL (130-400); RED BLOOD CELL COUNT 5.09 mill/uL (4.7-6.1); RED CELL DISTRIBUTION WIDTH 15.1 % (11.6-14.6)
[2020-03-19 08:00] VITALS: BP 136/82
[2020-03-19] MEDS: DOCUSATE SODIUM 250MG CAPSULE PO SCH (09:07)
[2020-03-19] MEDS: TAMSULOSIN HCL 0.4MG SR CAPSULE PO SCH (09:08)
[2020-03-19] MEDS: PANTOPRAZOLE SODIUM 40 MG/VIAL IV SCH (09:08)
[2020-03-19] MEDS: BISACODYL 10MG SUPP PR SCH (09:08)
[2020-03-19] MEDS: ENOXAPARIN 30MG/0.3ML SYR SUBCUT SCH (09:09)
[2020-03-19 12:00] VITALS: BP 155/88
[2020-03-19 16:00] VITALS: BP 157/92
[2020-03-19] MEDS ORDERED: AMLODIPINE 2.5MG TABLET PO NR (17:00)
[2020-03-19 20:00] VITALS: BP 166/90
[2020-03-20] VITALS: BP 130/72
[2020-03-20] MEDS: DEXT 5%/0.45% NACL KCL 20MEQ/L 1,000 ML IV SCH ×3 (03:21→22:05)
[2020-03-20 04:00] VITALS: BP 138/78
[2020-03-20] MEDS: METOCLOPRAMIDE HCL 10MG/2ML VIAL IV SCH ×4 (06:33→22:05)
[2020-03-20 06:49] LABS: BASOPHILS % 0.2 % (0.0-2.0); EOSINOPHILS % 6.5 % (0.0-5.0); HEMATOCRIT. 36.2 % (42.0-52.0); HEMOGLOBIN. 12.4 g/dL (14.0-18.0); LYMPHOCYTES % 21.2 % (20.0-50.0); MEAN CORPUSCULAR HEMOGLOBIN 29.4 pg (28.0-32.0); MEAN CORPUSCULAR VOLUME 85.7 fL (80.0-94.0); MEAN PLATELET VOLUME 7.3 fl (7.4-10.4); MONOCYTES % 12.2 % (2.0-8.0); NEUTROPHILS % 59.9 % (40.0-76.0); PLATELET 173 x1000/uL (130-400); RED BLOOD CELL COUNT 4.22 mill/uL (4.7-6.1); RED CELL DISTRIBUTION WIDTH 14.8 % (11.6-14.6)
[2020-03-20 08:00] VITALS: BP 143/84
[2020-03-20] MEDS: BISACODYL 10MG SUPP PR SCH (08:49)
[2020-03-20] MEDS: PANTOPRAZOLE SODIUM 40 MG/VIAL IV SCH (08:49)
[2020-03-20] MEDS: TAMSULOSIN HCL 0.4MG SR CAPSULE PO SCH (08:50)
[2020-03-20] MEDS: DOCUSATE SODIUM 250MG CAPSULE PO SCH (08:50)
[2020-03-20] MEDS: ENOXAPARIN 30MG/0.3ML SYR SUBCUT SCH (08:51)
[2020-03-20] MEDS: AMLODIPINE 5MG TABLET PO SCH (08:51)
[2020-03-20 12:00] VITALS: BP 134/80
[2020-03-20 16:00] VITALS: BP 147/85
[2020-03-20] MEDS: MORPHINE SULFATE 2 MG/ML CPJ (NOT FOR IM USE) IV PRN (16:36)
[2020-03-20 20:00] VITALS: BP 138/72
[2020-03-21] VITALS (7 sets, daily range): BP systolic 115–145; BP diastolic 65–89
[2020-03-21 06:32] LABS: BASOPHILS % 0.3 % (0.0-2.0); HEMOGLOBIN. 12.1 g/dL (14.0-18.0); LYMPHOCYTES % 20.8 % (20.0-50.0); MEAN CORPUSCULAR HEMOGLOBIN 28.8 pg (28.0-32.0); MEAN CORPUSCULAR VOLUME 85.8 fL (80.0-94.0); MEAN PLATELET VOLUME 7.4 fl (7.4-10.4); MONOCYTES % 11.4 % (2.0-8.0); NEUTROPHILS % 63.5 % (40.0-76.0); PLATELET 180 x1000/uL (130-400); RED BLOOD CELL COUNT 4.19 mill/uL (4.7-6.1); RED CELL DISTRIBUTION WIDTH 14.5 % (11.6-14.6)
[2020-03-21 06:33] LABS: CHLORIDE 110 mEq/L (98-107)
[2020-03-21] MEDS: METOCLOPRAMIDE HCL 10MG/2ML VIAL IV SCH ×3 (06:40→17:22)
[2020-03-21] MEDS: DEXT 5%/0.45% NACL KCL 20MEQ/L 1,000 ML IV SCH ×2 (06:40→16:41)
[2020-03-21] MEDS: PANTOPRAZOLE SODIUM 40 MG/VIAL IV SCH (08:21)
[2020-03-21] MEDS: AMLODIPINE 5MG TABLET PO SCH (08:22)
[2020-03-21] MEDS: TAMSULOSIN HCL 0.4MG SR CAPSULE PO SCH (08:22)
[2020-03-21] MEDS: DOCUSATE SODIUM 250MG CAPSULE PO SCH (08:22)
[2020-03-21] MEDS: BISACODYL 10MG SUPP PR SCH (08:23)
[2020-03-21] MEDS: ENOXAPARIN 40MG/0.4ML SYR SUBCUT SCH (08:23)
[2020-03-21] MEDS ORDERED: PANT40TA4 MT (08:40)
[2020-03-21] MEDS ORDERED: DOCU250C69 PO (08:40)
[2020-03-21] MEDS: LACTOBACILLUS GG CAPSULE PO SCH (09:31)
[2020-03-21] MEDS: ONDANSETRON HCL 4MG/2ML INJ IV PRN (15:57)
[2020-03-21 17:21] LABS: BASOPHILS % 0.3 % (0.0-2.0); EOSINOPHILS % 2.9 % (0.0-5.0); HEMATOCRIT. 40.3 % (42.0-52.0); HEMOGLOBIN. 13.4 g/dL (14.0-18.0); MEAN CORPUSCULAR HEMOGLOBIN 28.6 pg (28.0-32.0); MEAN CORPUSCULAR VOLUME 85.9 fL (80.0-94.0); MEAN PLATELET VOLUME 7.3 fl (7.4-10.4); MONOCYTES % 9.7 % (2.0-8.0); NEUTROPHILS % 72.1 % (40.0-76.0); PLATELET 207 x1000/uL (130-400); RED CELL DISTRIBUTION WIDTH 14.7 % (11.6-14.6)
[2020-03-21 17:28] LABS: CHLORIDE 108 mEq/L (98-107)
[2020-03-22] VITALS: BP_SYST 116; BP_SYST 135; BP_DIAS 65; BP_DIAS 80
[2020-03-22] MEDS: METOCLOPRAMIDE HCL 10MG/2ML VIAL IV SCH ×3 (00:16→12:39)
[2020-03-22 04:00] VITALS: BP 130/81
[2020-03-22] MEDS: DEXT 5%/0.45% NACL KCL 20MEQ/L 1,000 ML IV SCH (06:50)
[2020-03-22 07:19] LABS: BASOPHILS % 0.4 % (0.0-2.0); EOSINOPHILS % 4.2 % (0.0-5.0); HEMATOCRIT. 38.7 % (42.0-52.0); HEMOGLOBIN. 13.3 g/dL (14.0-18.0); MEAN CORPUSCULAR VOLUME 84.5 fL (80.0-94.0); MEAN PLATELET VOLUME 7.4 fl (7.4-10.4); MONOCYTES % 12.3 % (2.0-8.0); NEUTROPHILS % 57.1 % (40.0-76.0); PLATELET 207 x1000/uL (130-400); RED BLOOD CELL COUNT 4.58 mill/uL (4.7-6.1); RED CELL DISTRIBUTION WIDTH 14.9 % (11.6-14.6)
[2020-03-22 07:31] LABS: CHLORIDE 109 mEq/L (98-107)
[2020-03-22 08:00] VITALS: BP 138/73
[2020-03-22] MEDS: LACTOBACILLUS GG CAPSULE PO SCH (08:36)
[2020-03-22] MEDS: ENOXAPARIN 40MG/0.4ML SYR SUBCUT SCH (08:36)
[2020-03-22] MEDS: AMLODIPINE 5MG TABLET PO SCH (08:36)
[2020-03-22] MEDS: TAMSULOSIN HCL 0.4MG SR CAPSULE PO SCH (08:37)
[2020-03-22] MEDS: DOCUSATE SODIUM 250MG CAPSULE PO SCH (08:37)
[2020-03-22] MEDS: PANTOPRAZOLE SODIUM 40 MG/VIAL IV SCH (08:37)
[2020-03-22] MEDS: BISACODYL 10MG SUPP PR SCH (08:38)
[2020-03-22 12:00] VITALS: BP 145/85
[2020-03-22 14:50] VITALS: BP 145/85
== END 2020-03-22 15:42 | disposition home or self-care (01) | DRG 336 ==
LOC: ER 07:07 → EDBEDREQ 07:42 → EDBEDREQSVC 11:10 → EDBEDREQTM 11:10 → 6EST 11:12 → EDBEDREQ 11:14 → EDBEDREQTM 11:14 → ENRESERV 14:59 → 6EST 03-19 17:51
PROVIDERS: ADMIT Internal Medicine Geriatric Medicine; ATTEND Internal Medicine Geriatric Medicine
PROC: 0DN80ZZ Release Small Intestine, Open Approach (ICD-10-PCS; principal; 2020-03-16)
DX: K56.609 Unspecified intestinal obstruction, unspecified as to partial versus complete obstruction (principal); K91.89 Other postprocedural complications and disorders of digestive system; N17.9 Acute kidney failure, unspecified; K80.20 Calculus of gallbladder without cholecystitis without obstruction; E78.5 Hyperlipidemia, unspecified; I10 Essential (primary) hypertension; D72.829 Elevated white blood cell count, unspecified; D75.1 Secondary polycythemia; C09.9 Malignant neoplasm of tonsil, unspecified; K40.20 Bilateral inguinal hernia, without obstruction or gangrene, not specified as recurrent; K80.50 Calculus of bile duct without cholangitis or cholecystitis without obstruction; E86.9 Volume depletion, unspecified; K56.7 Ileus, unspecified; K21.9 Gastro-esophageal reflux disease without esophagitis; Z85.89 Personal history of malignant neoplasm of other organs and systems; Z85.818 Personal history of malignant neoplasm of other sites of lip, oral cavity, and pharynx; Z79.899 Other long term (current) drug therapy; Z82.3 Family history of stroke; Z86.19 Personal history of other infectious and parasitic diseases; Z87.11 Personal history of peptic ulcer disease; Z92.3 Personal history of irradiation; E80.6 Other disorders of bilirubin metabolism
CPT/HCPCS: 36415; 71045; 74018; 74177; 74181; 74250; 76700; 80048; 80053; 80061; 80305; 80320; 81003; 82550; 83605; 83735; 84100; 84484; 85025; 87426; 93005; 93306; 99285; C9113; J0330; J0690; J1100; J1170; J1650; J2250; J2270; J2370; J2405; J2543; J2704; J2710; J2765; J3010; J3490; J7030; J7060; Q9963; Q9967; G0480

== ENCOUNTER → 2020-07-18 | Outpatient (CLI) | payer MEDICARE ==
[~2020-07-18] MED LIST changes: +DOCU250C69 PO; +PANT40TA51 MT
[2020-07-18 08:04] LABS: HEMATOCRIT. 40.7 % (42.0-52.0); HEMOGLOBIN. 13.7 g/dL (14.0-18.0); MEAN CORPUSCULAR HEMOGLOBIN 28.7 pg (28.0-32.0); MEAN CORPUSCULAR VOLUME 85.4 fL (80.0-94.0); MEAN PLATELET VOLUME 6.7 fl (7.4-10.4); PLATELET 169 x1000/uL (130-400); RED BLOOD CELL COUNT 4.77 mill/uL (4.7-6.1)
[2020-07-18 08:17] LABS: CHLORIDE 105 mEq/L (98-107)
[2020-07-18 20:59] LABS: ATYPICAL LYMPHOCYTES 3; PLATELET ESTIMATE NORMAL
== END | disposition home or self-care (01) ==
LOC: LAB 07:29
PROVIDERS: ATTEND Internal Medicine Hematology & Oncology
DX: C09.0 Malignant neoplasm of tonsillar fossa (principal); Z85.00 Personal history of malignant neoplasm of unspecified digestive organ
CPT/HCPCS: 36415; 80053; 82378; 85025

== ENCOUNTER → 2021-01-09 | Outpatient (CLI) | payer MEDICARE ==
[2021-01-09 08:29] LABS: HEMATOCRIT. 40.1 % (42.0-52.0); MEAN CORPUSCULAR HEMOGLOBIN 29.2 pg (28.0-32.0); MEAN CORPUSCULAR VOLUME 83.7 fL (80.0-94.0); PLATELET 167 x1000/uL (130-400); RED BLOOD CELL COUNT 4.79 mill/uL (4.7-6.1); RED CELL DISTRIBUTION WIDTH 14.9 % (11.6-14.6)
[2021-01-09 08:34] LABS: CHLORIDE 107 mEq/L (98-107)
[2021-01-09 08:41] LABS: LDL CHOLESTEROL 111 mg/dL (5-100)
[2021-01-09 08:42] LABS: HDL CHOLESTEROL 47 mg/dL (40-59)
[2021-01-09 20:13] LABS: PLATELET ESTIMATE NORMAL
== END | disposition home or self-care (01) ==
LOC: LAB 07:35
PROVIDERS: ATTEND Internal Medicine Geriatric Medicine
DX: I10 Essential (primary) hypertension (principal); E78.5 Hyperlipidemia, unspecified; R64 Cachexia; Z79.899 Other long term (current) drug therapy
CPT/HCPCS: 36415; 80053; 80061; 83036; 85025

== ENCOUNTER → 2021-01-29 | Outpatient (CLI) | payer MEDICARE ==
[2021-01-29 07:14] LABS: HEMATOCRIT. 41.8 % (42.0-52.0); HEMOGLOBIN. 14.2 g/dL (14.0-18.0); MEAN CORPUSCULAR HEMOGLOBIN 28.2 pg (28.0-32.0); MEAN CORPUSCULAR VOLUME 83.3 fL (80.0-94.0); MEAN PLATELET VOLUME 6.9 fl (7.4-10.4); PLATELET 184 x1000/uL (130-400); RED BLOOD CELL COUNT 5.02 mill/uL (4.7-6.1)
[2021-01-29 07:52] LABS: CHLORIDE 106 mEq/L (98-107)
[2021-01-29 08:06] LABS: T4 FREE 0.82 ng/dL (0.76-1.46)
[2021-01-29 17:03] LABS: PLATELET ESTIMATE NORMAL
== END | disposition home or self-care (01) ==
LOC: LAB 06:34
PROVIDERS: ATTEND Internal Medicine Hematology & Oncology
DX: C09.0 Malignant neoplasm of tonsillar fossa (principal); I10 Essential (primary) hypertension; E03.9 Hypothyroidism, unspecified; Z79.899 Other long term (current) drug therapy; Z98.890 Other specified postprocedural states
CPT/HCPCS: 36415; 80053; 82378; 84439; 84443; 85025

== ENCOUNTER → 2021-10-09 | Outpatient (CLI) | payer MEDICARE ==
[2021-10-09 08:30] LABS: CHLORIDE 104 mEq/L (98-107)
[2021-10-09 08:31] LABS: HEMATOCRIT. 43.4 % (42.0-52.0); HEMOGLOBIN. 14.8 g/dL (14.0-18.0); MEAN CORPUSCULAR HEMOGLOBIN 28.3 pg (28.0-32.0); MEAN CORPUSCULAR VOLUME 83.3 fL (80.0-94.0); MEAN PLATELET VOLUME 6.9 fl (7.4-10.4); PLATELET 193 x1000/uL (130-400); RED BLOOD CELL COUNT 5.22 mill/uL (4.7-6.1); RED CELL DISTRIBUTION WIDTH 14.9 % (11.6-14.6)
[2021-10-09 08:39] LABS: T4 FREE 0.83 ng/dL (0.76-1.46)
[2021-10-09 09:38] LABS: PLATELET ESTIMATE NORMAL
== END | disposition home or self-care (01) ==
LOC: LAB 07:52
PROVIDERS: ATTEND Internal Medicine Hematology & Oncology
DX: C09.0 Malignant neoplasm of tonsillar fossa (principal)
CPT/HCPCS: 36415; 80053; 82378; 84439; 84443; 85025

== ENCOUNTER → 2021-10-23 | Outpatient (CLI) | payer MEDICARE | END | disposition home or self-care (01) | LOC: LAB 06:40 | PROVIDERS: ATTEND Internal Medicine Hematology & Oncology | DX: C09.0 Malignant neoplasm of tonsillar fossa (principal); C91.10 Chronic lymphocytic leukemia of B-cell type not having achieved remission | CPT/HCPCS: 36415; 82378 ==

== ENCOUNTER → 2021-12-01 | Outpatient (CLI) | payer MEDICARE ==
[2021-12-01 08:52] LABS: HEMATOCRIT. 41.6 % (42.0-52.0); MEAN CORPUSCULAR HEMOGLOBIN 28.4 pg (28.0-32.0); MEAN CORPUSCULAR VOLUME 84.7 fL (80.0-94.0); MEAN PLATELET VOLUME 6.8 fl (7.4-10.4); PLATELET 184 x1000/uL (130-400); RED BLOOD CELL COUNT 4.91 mill/uL (4.7-6.1)
[2021-12-01 09:11] LABS: CHLORIDE 107 mEq/L (98-107)
[2021-12-01 09:26] LABS: T4 FREE 0.85 ng/dL (0.76-1.46)
[2021-12-01 14:03] LABS: CARCINO EMBRYONIC ANTIGEN 2.6 ng/ml
[2021-12-01 18:14] LABS: PLATELET ESTIMATE NORMAL
== END | disposition home or self-care (01) ==
LOC: LAB 08:13
PROVIDERS: ATTEND Internal Medicine Geriatric Medicine
DX: I10 Essential (primary) hypertension (principal); R97.0 Elevated carcinoembryonic antigen [CEA]
CPT/HCPCS: 36415; 80053; 82378; 82607; 84436; 84439; 84443; 84479; 85025

== ENCOUNTER → 2022-02-06 | Outpatient (CLI) | payer MEDICARE ==
[2022-02-06 07:53] LABS: HEMATOCRIT. 40.9 % (42.0-52.0); HEMOGLOBIN. 13.8 g/dL (14.0-18.0); PLATELET 188 x1000/uL (130-400); RED BLOOD CELL COUNT 4.92 mill/uL (4.7-6.1); RED CELL DISTRIBUTION WIDTH 15.8 % (11.6-14.6)
[2022-02-06 08:05] LABS: CHLORIDE 106 mEq/L (98-107)
[2022-02-06 21:47] LABS: PLATELET ESTIMATE NORMAL
== END | disposition home or self-care (01) ==
LOC: LAB 07:20
PROVIDERS: ATTEND Internal Medicine Hematology & Oncology
DX: C09.0 Malignant neoplasm of tonsillar fossa (principal); C91.10 Chronic lymphocytic leukemia of B-cell type not having achieved remission
CPT/HCPCS: 36415; 80053; 82378; 85025

== ENCOUNTER → 2022-03-07 | Outpatient (CLI) | payer MEDICARE ==
[2022-03-07 17:21] LABS: T4 FREE 0.82 ng/dL (0.76-1.46)
== END | disposition home or self-care (01) ==
LOC: LAB 15:31
PROVIDERS: ATTEND Internal Medicine Geriatric Medicine
DX: C91.10 Chronic lymphocytic leukemia of B-cell type not having achieved remission (principal); R94.6 Abnormal results of thyroid function studies; M79.2 Neuralgia and neuritis, unspecified
CPT/HCPCS: 36415; 84436; 84439; 84443; 84479; 86800

== ENCOUNTER → 2022-05-15 | Outpatient (CLI) | payer MEDICARE ==
[2022-05-15 08:20] LABS: HEMOGLOBIN. 13.8 g/dL (14.0-18.0); MEAN CORPUSCULAR HEMOGLOBIN 28.4 pg (28.0-32.0); MEAN CORPUSCULAR VOLUME 84.3 fL (80.0-94.0); PLATELET 213 x1000/uL (130-400); RED BLOOD CELL COUNT 4.87 mill/uL (4.7-6.1); RED CELL DISTRIBUTION WIDTH 15.1 % (11.6-14.6)
[2022-05-15 14:06] LABS: PLATELET ESTIMATE NORMAL
[2022-05-15 15:31] LABS: CHLORIDE 101 mEq/L (98-107)
[2022-05-15 16:02] LABS: HDL CHOLESTEROL 37 mg/dL (40-59); LDL CHOLESTEROL 124 mg/dL (5-100)
== END | disposition home or self-care (01) ==
LOC: LAB 07:21
PROVIDERS: ATTEND Internal Medicine Geriatric Medicine
DX: I10 Essential (primary) hypertension (principal); R94.6 Abnormal results of thyroid function studies
CPT/HCPCS: 36415; 80053; 80061; 82378; 83970; 84436; 84443; 84550; 85025

== ENCOUNTER → 2022-09-02 | Outpatient (CLI) | payer MEDICARE ==
[2022-09-02 12:51] LABS: HEMOGLOBIN. 14.3 g/dL (14.0-18.0); MEAN CORPUSCULAR HEMOGLOBIN 27.9 pg (28.0-32.0); MEAN CORPUSCULAR VOLUME 83.6 fL (80.0-94.0); PLATELET 225 x1000/uL (130-400); RED BLOOD CELL COUNT 5.14 mill/uL (4.7-6.1); RED CELL DISTRIBUTION WIDTH 15.7 % (11.6-14.6)
[2022-09-02 13:15] LABS: CHLORIDE 105 mEq/L (98-107)
[2022-09-02 13:34] LABS: HDL CHOLESTEROL 33 mg/dL (40-59); LDL CHOLESTEROL 112 mg/dL (5-100)
[2022-09-02 14:03] LABS: PLATELET ESTIMATE NORMAL
== END | disposition home or self-care (01) ==
LOC: LAB 12:08
PROVIDERS: ATTEND Internal Medicine Geriatric Medicine
DX: I10 Essential (primary) hypertension (principal); D64.9 Anemia, unspecified; R94.6 Abnormal results of thyroid function studies; Z79.899 Other long term (current) drug therapy
CPT/HCPCS: 36415; 80053; 80061; 82746; 83036; 84436; 84443; 85025

== ENCOUNTER → 2022-10-31 | Outpatient (CLI) | payer MEDICARE ==
[2022-10-31 13:38] LABS: CHLORIDE 103 mEq/L (98-107)
[2022-10-31 13:56] LABS: T4 FREE 0.82 ng/dL (0.76-1.46)
== END | disposition home or self-care (01) ==
LOC: LAB 12:43
PROVIDERS: ATTEND Internal Medicine Geriatric Medicine
DX: R94.6 Abnormal results of thyroid function studies (principal); E78.5 Hyperlipidemia, unspecified
CPT/HCPCS: 36415; 80048; 84439; 84443

== ENCOUNTER → 2022-11-14 | Outpatient (CLI) | payer MEDICARE ==
[2022-11-14 08:32] LABS: HEMATOCRIT. 42.8 % (42.0-52.0); HEMOGLOBIN. 14.7 g/dL (14.0-18.0); MEAN CORPUSCULAR HEMOGLOBIN 28.5 pg (28.0-32.0); MEAN CORPUSCULAR VOLUME 83.1 fL (80.0-94.0); MEAN PLATELET VOLUME 6.5 fl (7.4-10.4); PLATELET 219 x1000/uL (130-400); RED BLOOD CELL COUNT 5.15 mill/uL (4.7-6.1); RED CELL DISTRIBUTION WIDTH 15.3 % (11.6-14.6)
[2022-11-14 08:41] LABS: CHLORIDE 106 mEq/L (98-107)
[2022-11-14 16:51] LABS: PLATELET ESTIMATE NORMAL
== END | disposition home or self-care (01) ==
LOC: LAB 07:55
PROVIDERS: ATTEND Internal Medicine Hematology & Oncology
DX: C09.0 Malignant neoplasm of tonsillar fossa (principal); C91.10 Chronic lymphocytic leukemia of B-cell type not having achieved remission
CPT/HCPCS: 36415; 80053; 82378; 85025

== ENCOUNTER → 2023-05-14 | Outpatient (CLI) | payer MEDICARE ==
[2023-05-14 08:56] LABS: HEMOGLOBIN. 13.9 g/dL (14.0-18.0); MEAN CORPUSCULAR HEMOGLOBIN 27.7 pg (28.0-32.0); MEAN CORPUSCULAR HGB CONC 33.2 g/dL (31.0-37.0); MEAN CORPUSCULAR VOLUME 83.6 fL (80.0-94.0); PLATELET 200 x1000/uL (130-400); RED BLOOD CELL COUNT 5.02 mill/uL (4.7-6.1); RED CELL DISTRIBUTION WIDTH 15.8 % (11.6-14.6); WHITE BLOOD COUNT 7.8 x1000/uL (4.5-11.0)
[2023-05-14 08:58] LABS: DIFFERENTIAL COMMENT 1
[2023-05-14 09:32] LABS: CHLORIDE 108 mEq/L (98-107); POTASSIUM 4.6 mEq/L (3.5-5.1); SODIUM 140 mEq/L (136-145)
[2023-05-14 09:41] LABS: ALANINE AMINOTRANSFERASE 17 IU/L (13-61); ASPARTATE AMINOTRANSFERASE 13 IU/L (15-37); BILIRUBIN TOTAL 1.1 mg/dL (0.1-1.0); CALCIUM 8.9 mg/dL (8.5-10.1); CARBON DIOXIDE 32 mEq/L (21-32); GLUCOSE 94 mg/dL (70-105); PROTEIN TOTAL 7.8 g/dL (6.0-8.3); UREA NITROGEN BLOOD 10 mg/dL (7-21)
[2023-05-14 14:31] LABS: PLATELET ESTIMATE NORMAL
== END | disposition home or self-care (01) ==
LOC: LAB 08:25
PROVIDERS: ATTEND Internal Medicine Hematology & Oncology
DX: C09.0 Malignant neoplasm of tonsillar fossa (principal); C91.10 Chronic lymphocytic leukemia of B-cell type not having achieved remission
CPT/HCPCS: 36415; 80053; 82378; 85025

== ENCOUNTER → 2023-11-11 | Outpatient (CLI) | payer MEDICARE ==
[2023-11-11 07:43] LABS: HEMATOCRIT. 42.8 % (42.0-52.0); HEMOGLOBIN. 14.2 g/dL (14.0-18.0); MEAN CORPUSCULAR HEMOGLOBIN 28.3 pg (28.0-32.0); MEAN CORPUSCULAR HGB CONC 33.3 g/dL (31.0-37.0); MEAN CORPUSCULAR VOLUME 85.2 fL (80.0-94.0); MEAN PLATELET VOLUME 7.2 fl (7.4-10.4); PLATELET 240 x1000/uL (130-400); RED BLOOD CELL COUNT 5.02 mill/uL (4.7-6.1); RED CELL DISTRIBUTION WIDTH 14.9 % (11.6-14.6); WHITE BLOOD COUNT 10.8 x1000/uL (4.5-11.0)
[2023-11-11 07:50] LABS: DIFFERENTIAL COMMENT 1
[2023-11-11 08:04] LABS: CHLORIDE 105 mEq/L (98-107); POTASSIUM 4.3 mEq/L (3.5-5.1); SODIUM 138 mEq/L (136-145)
[2023-11-11 08:05] LABS: CARBON DIOXIDE 31 mEq/L (21-32)
[2023-11-11 08:10] LABS: CREATININE 0.9 mg/dL (0.6-1.3); GLUCOSE 88 mg/dL (70-105); UREA NITROGEN BLOOD 14 mg/dL (9-23)
[2023-11-11 08:12] LABS: ALANINE AMINOTRANSFERASE 14 IU/L (10-49); ALBUMIN 4.6 g/dL (3.2-4.8); ASPARTATE AMINOTRANSFERASE 14 IU/L (<34); BILIRUBIN TOTAL 0.7 mg/dL (0.1-1.0); PROTEIN TOTAL 7.9 g/dL (6.0-8.3)
[2023-11-11 20:46] LABS: ANISOCYTOSIS 1+; PLATELET ESTIMATE NORMAL
== END | disposition home or self-care (01) ==
LOC: LAB 07:10
PROVIDERS: ATTEND Internal Medicine Hematology & Oncology
DX: C91.10 Chronic lymphocytic leukemia of B-cell type not having achieved remission (principal); C09.0 Malignant neoplasm of tonsillar fossa; Z98.890 Other specified postprocedural states
CPT/HCPCS: 36415; 80053; 82378; 85025

== ENCOUNTER → 2024-02-25 | Outpatient (CLI) | payer MEDICARE ==
[2024-02-25 13:13] LABS: HEMATOCRIT. 43.4 % (42.0-52.0); HEMOGLOBIN. 14.3 g/dL (14.0-18.0); MEAN CORPUSCULAR HEMOGLOBIN 28.6 pg (28.0-32.0); MEAN CORPUSCULAR HGB CONC 32.9 g/dL (31.0-37.0); MEAN CORPUSCULAR VOLUME 86.9 fL (80.0-94.0); MEAN PLATELET VOLUME 7.2 fl (7.4-10.4); PLATELET 221 x1000/uL (130-400); RED CELL DISTRIBUTION WIDTH 15.7 % (11.6-14.6); WHITE BLOOD COUNT 10.7 x1000/uL (4.5-11.0)
[2024-02-25 13:34] LABS: CARBON DIOXIDE 32 mEq/L (21-32); CHLORIDE 104 mEq/L (98-107); POTASSIUM 4.5 mEq/L (3.5-5.1); SODIUM 138 mEq/L (136-145)
[2024-02-25 13:35] LABS: CALCIUM 9.7 mg/dL (8.7-10.4)
[2024-02-25 13:38] LABS: DIFFERENTIAL COMMENT 1
[2024-02-25 13:39] LABS: GLUCOSE 100 mg/dL (70-105); IRON 70 ug/dL (65-175)
[2024-02-25 13:40] LABS: LDL CHOLESTEROL 91 mg/dL (5-100); TRIGLYCERIDE 89 mg/dL (0-150); UREA NITROGEN BLOOD 12 mg/dL (9-23)
[2024-02-25 13:41] LABS: ALANINE AMINOTRANSFERASE 12 IU/L (10-49); ALBUMIN 4.9 g/dL (3.2-4.8); ASPARTATE AMINOTRANSFERASE 13 IU/L (<34); CHOLESTEROL 135 mg/dL (<200)
[2024-02-25 13:42] LABS: BILIRUBIN TOTAL 0.9 mg/dL (0.1-1.0); HDL CHOLESTEROL 36 mg/dL (>55); PROTEIN TOTAL 7.6 g/dL (6.0-8.3); TOTAL IRON BINDING CAPACITY 306 ug/dl (250-425)
[2024-02-25 13:44] LABS: THYROID STIMULATING HORMONE 5.86 uIU/mL (0.55-4.78); VITAMIN B12 SERUM 798 pg/mL (211-911)
[2024-02-25 18:41] LABS: PLATELET ESTIMATE NORMAL
[2024-02-26 10:38] LABS: FOLIC ACID (FOLATE) SERUM 14.79 ng/mL (>5.38)
[2024-02-27 08:09] LABS: % FREE PSA 28.6 % (.); PROSTATE SPECIFIC AG TOTAL 2.1 ng/mL (0.0-4.0); PSA FREE 0.6 ng/mL
== END | disposition home or self-care (01) ==
LOC: LAB 12:35
PROVIDERS: ATTEND Internal Medicine Geriatric Medicine
DX: I10 Essential (primary) hypertension (principal); E78.5 Hyperlipidemia, unspecified; G90.9 Disorder of the autonomic nervous system, unspecified; Z79.899 Other long term (current) drug therapy; Z98.890 Other specified postprocedural states
CPT/HCPCS: 36415; 80053; 80061; 82607; 82746; 83036; 83540; 83550; 84153; 84154; 84443; 85025

== ENCOUNTER → 2024-05-18 | Outpatient (CLI) | payer MEDICARE ==
[~2024-05-18] MED LIST changes: +DOCU-405 PO; -DOCU250C69 PO
[2024-05-18 08:16] LABS: HEMATOCRIT. 43.8 % (42.0-52.0); HEMOGLOBIN. 14.7 g/dL (14.0-18.0); MEAN CORPUSCULAR HEMOGLOBIN 28.5 pg (28.0-32.0); MEAN CORPUSCULAR HGB CONC 33.5 g/dL (31.0-37.0); MEAN PLATELET VOLUME 6.8 fl (7.4-10.4); PLATELET 206 x1000/uL (130-400); RED BLOOD CELL COUNT 5.16 mill/uL (4.7-6.1); RED CELL DISTRIBUTION WIDTH 14.7 % (11.6-14.6); WHITE BLOOD COUNT 11.4 x1000/uL (4.5-11.0)
[2024-05-18 08:17] LABS: DIFFERENTIAL COMMENT 1
[2024-05-18 08:30] LABS: CHLORIDE 103 mEq/L (98-107)
[2024-05-18 08:31] LABS: CARBON DIOXIDE 34 mEq/L (21-32); POTASSIUM 4.8 mEq/L (3.5-5.1); SODIUM 139 mEq/L (136-145)
[2024-05-18 08:32] LABS: CALCIUM 9.7 mg/dL (8.7-10.4)
[2024-05-18 08:36] LABS: CREATININE 1.1 mg/dL (0.6-1.3); GLUCOSE 99 mg/dL (70-105)
[2024-05-18 08:37] LABS: UREA NITROGEN BLOOD 13 mg/dL (9-23)
[2024-05-18 08:38] LABS: ALANINE AMINOTRANSFERASE 15 IU/L (10-49); ALBUMIN 4.4 g/dL (3.2-4.8); ASPARTATE AMINOTRANSFERASE 13 IU/L (<34)
[2024-05-18 08:39] LABS: BILIRUBIN TOTAL 1.1 mg/dL (0.1-1.0); PROTEIN TOTAL 7.2 g/dL (6.0-8.3)
[2024-05-19 02:20] LABS: PLATELET ESTIMATE NORMAL
== END | disposition home or self-care (01) ==
LOC: LAB 07:23
PROVIDERS: ATTEND Internal Medicine Hematology & Oncology
DX: C91.10 Chronic lymphocytic leukemia of B-cell type not having achieved remission (principal); C09.0 Malignant neoplasm of tonsillar fossa
CPT/HCPCS: 36415; 80053; 82378; 85025

== ENCOUNTER → 2024-11-16 | Outpatient (CLI) | payer MEDICARE ==
[2024-11-16 08:08] LABS: HEMATOCRIT. 43.6 % (42.0-52.0); HEMOGLOBIN. 14.7 g/dL (14.0-18.0); MEAN CORPUSCULAR HEMOGLOBIN 28.4 pg (28.0-32.0); MEAN CORPUSCULAR HGB CONC 33.7 g/dL (31.0-37.0); MEAN CORPUSCULAR VOLUME 84.3 fL (80.0-94.0); MEAN PLATELET VOLUME 6.9 fl (7.4-10.4); PLATELET 206 x1000/uL (130-400); RED BLOOD CELL COUNT 5.17 mill/uL (4.7-6.1); RED CELL DISTRIBUTION WIDTH 15.9 % (11.6-14.6); WHITE BLOOD COUNT 11.9 x1000/uL (4.5-11.0)
[2024-11-16 08:12] LABS: DIFFERENTIAL COMMENT 1
[2024-11-16 08:40] LABS: CHLORIDE 106 mEq/L (98-107); POTASSIUM 4.5 mEq/L (3.5-5.1); SODIUM 141 mEq/L (136-145)
[2024-11-16 08:41] LABS: CALCIUM 9.6 mg/dL (8.7-10.4); CARBON DIOXIDE 32 mEq/L (21-32)
[2024-11-16 08:46] LABS: CREATININE 1.1 mg/dL (0.6-1.3); GLUCOSE 100 mg/dL (70-105); UREA NITROGEN BLOOD 14 mg/dL (9-23)
[2024-11-16 08:48] LABS: ALANINE AMINOTRANSFERASE 19 IU/L (10-49); ALBUMIN 4.3 g/dL (3.2-4.8); ASPARTATE AMINOTRANSFERASE 15 IU/L (<34); BILIRUBIN TOTAL 0.9 mg/dL (0.1-1.0); PROTEIN TOTAL 7.4 g/dL (6.0-8.3)
[2024-11-16 19:01] LABS: ANISOCYTOSIS 1+; PLATELET ESTIMATE NORMAL
== END | disposition home or self-care (01) ==
LOC: LAB 07:37
DX: C09.0 Malignant neoplasm of tonsillar fossa (principal); C91.10 Chronic lymphocytic leukemia of B-cell type not having achieved remission; Z79.899 Other long term (current) drug therapy
CPT/HCPCS: 36415; 80053; 82378; 85025

== ENCOUNTER → 2024-12-08 | Outpatient (CLI) | payer MEDICARE ==
[2024-12-08 07:24] LABS: HEMATOCRIT. 42.6 % (42.0-52.0); MEAN CORPUSCULAR HEMOGLOBIN 27.8 pg (28.0-32.0); MEAN CORPUSCULAR HGB CONC 32.8 g/dL (31.0-37.0); MEAN CORPUSCULAR VOLUME 84.7 fL (80.0-94.0); PLATELET 213 x1000/uL (130-400); RED BLOOD CELL COUNT 5.03 mill/uL (4.7-6.1); RED CELL DISTRIBUTION WIDTH 15.6 % (11.6-14.6); WHITE BLOOD COUNT 12.2 x1000/uL (4.5-11.0)
[2024-12-08 07:28] LABS: DIFFERENTIAL COMMENT 1
[2024-12-08 07:36] LABS: CHLORIDE 103 mEq/L (98-107); POTASSIUM 4.1 mEq/L (3.5-5.1); SODIUM 139 mEq/L (136-145)
[2024-12-08 07:37] LABS: CARBON DIOXIDE 29 mEq/L (21-32)
[2024-12-08 07:38] LABS: CALCIUM 9.3 mg/dL (8.7-10.4)
[2024-12-08 07:42] LABS: GLUCOSE 97 mg/dL (70-105)
[2024-12-08 07:43] LABS: UREA NITROGEN BLOOD 9 mg/dL (9-23)
[2024-12-08 07:44] LABS: ALANINE AMINOTRANSFERASE 22 IU/L (10-49); ALBUMIN 4.6 g/dL (3.2-4.8); ASPARTATE AMINOTRANSFERASE 16 IU/L (<34)
[2024-12-08 07:45] LABS: BILIRUBIN TOTAL 0.9 mg/dL (0.1-1.0); PROTEIN TOTAL 7.3 g/dL (6.0-8.3)
[2024-12-08 10:19] LABS: ANISOCYTOSIS 1+; PLATELET ESTIMATE NORMAL
== END | disposition home or self-care (01) ==
LOC: LAB 06:54
PROVIDERS: ATTEND Internal Medicine Hematology & Oncology
DX: C91.10 Chronic lymphocytic leukemia of B-cell type not having achieved remission (principal)
CPT/HCPCS: 36415; 80053; 82378; 85025

== ENCOUNTER → 2025-02-10 | Outpatient (CLI) | payer MEDICARE | END | disposition home or self-care (01) | LOC: CT 14:17 | PROVIDERS: ATTEND Internal Medicine Geriatric Medicine | DX: C44.42 Squamous cell carcinoma of skin of scalp and neck (principal); N28.1 Cyst of kidney, acquired; I67.82 Cerebral ischemia; K80.20 Calculus of gallbladder without cholecystitis without obstruction; G31.9 Degenerative disease of nervous system, unspecified; R59.0 Localized enlarged lymph nodes | CPT/HCPCS: 71250 ==

== ENCOUNTER → 2025-06-15 | Outpatient (CLI) | payer MEDICARE ==
[2025-06-15 10:31] LABS: HEMATOCRIT. 45.8 % (42.0-52.0); HEMOGLOBIN. 15.0 g/dL (14.0-18.0); MEAN PLATELET VOLUME 7.3 fl (7.4-10.4); PLATELET 198 x1000/uL (130-400); RED BLOOD CELL COUNT 5.47 mill/uL (4.7-6.1); RED CELL DISTRIBUTION WIDTH 15.5 % (11.6-14.6)
[2025-06-15 10:38] LABS: CREATININE 1.0 mg/dL (0.6-1.3); TRIGLYCERIDE 62 mg/dL (0-150)
[2025-06-15 10:39] LABS: LDL CHOLESTEROL 61 mg/dL (5-100); PROTEIN TOTAL 7.7 g/dL (6.0-8.3); UREA NITROGEN BLOOD 12 mg/dL (9-23)
[2025-06-15 10:40] LABS: ASPARTATE AMINOTRANSFERASE 17 IU/L (<34); BILIRUBIN TOTAL 1.2 mg/dL (0.1-1.0)
[2025-06-15 11:44] LABS: VITAMIN B12 SERUM 535 pg/mL (211-911)
[2025-06-15 16:05] LABS: EOSINOPHILS % MANUAL 1.0 % (0.0-5.0); LYMPHOCYTES % MANUAL 81.0 % (20.0-50.0); MONOCYTES % MANUAL 4.0 % (2.0-8.0); NEUTROPHILS % MANUAL 14.0 % (45.0-75.0); PLATELET ESTIMATE NORMAL
[2025-06-16 06:07] LABS: CARCINOEMBRYONIC AG - SEND OUT 3.4 ng/mL (0.0-4.7); PROSTATE SPECIFIC AG TOTAL 2.4 ng/mL (0.0-4.0)
== END | disposition home or self-care (01) ==
LOC: LAB 08:59
PROVIDERS: ATTEND Internal Medicine Geriatric Medicine
DX: E78.5 Hyperlipidemia, unspecified (principal); E03.2 Hypothyroidism due to medicaments and other exogenous substances; Z79.899 Other long term (current) drug therapy
CPT/HCPCS: 36415; 80053; 80061; 82378; 82607; 83036; 84153; 84443; 84550; 85025